=== PATIENT | female | born 1965 | race Caucasian/White ===

== ENCOUNTER 2020-03-17 22:00 | Emergency (ER) | payer OTHER ==
[~2020-03-17] VITALS: Ht 160 cm; Wt 82.7 kg
--- NOTE | 2020-03-17 22:45 | RAD ---
Exam: Right ankle 3 views INDICATION: Ankle pain after fall TECHNIQUE: Frontal, lateral and oblique views of the right ankle Comparisons: None FINDINGS: There is a obliquely oriented fracture of the distal fibula which is minimally displaced. Joint spaces are well-maintained. Mild soft tissue swelling overlying the lateral malleolus. Bone mineralization is normal. IMPRESSION: Obliquely oriented Fracture of the distal fibula which is minimally displaced. Electronically signed by: Reyna Mendez MD (03/17/2020 10:42 PM) [facility]
--- NOTE | 2020-03-17 23:02 | PHYS DOC ---
Past History Additional Past Medical Histor: bilateral ankle fractures (2013) Past Surgical History: , Hysterectomy Smoking: Cigarettes, Less than 1pk/day, Quit Greater Than 1 Year Additional Smoking Information: Smoked 4-5 cigarettes x 30 years, quit 14 years ago Alcohol Use: Occasionally Additional Alcohol Information: 1 glass of wine per day Drug Use: None Social History Lives with . General Adult EDM: Chief Complaint: ANKLE INJURY PAIN HPI: HPI: Patient is a 54 year old female who presents with right ankle pain. This evening, pt was stepping back from her kitchen into the garage onto a lower step and twisted her right foot. She heard a "pop" followed by pain in the right ankle. She was able to bear weight on the leg and took a few steps after with significant pain. She elevated the leg for 1 hour without improvement in pain and then placed it in a walking boot. She can ambulate a little better in the boot but continues to note pain and discomfort with weight bearing. Pain is l ocalized to right lateral leg, 4cm above lateral malleolus. She has not taken any pain medications at home. Denies weakness of right leg, numbness/tingling in toes, or loss of sensation. She previously broke both her ankles back in 2013, but did not require any surgical intervention. Review of Systems: Review of Systems: Constitutional: Denies fever or chills Eyes: Denies redness or eye pain HENT: Denies nasal congestion or sore throat Respiratory: Denies cough or shortness of breath Cardiovascular: Denies chest pain or palpitations GI: Denies abdominal pain, nausea, or vomiting : Denies dysuria or hematuria Musculoskeletal: +Right ankle pain. Denies back pain or other joint pains. Integument: Denies rash or skin lesions Neurologic: Denies headache, focal weakness or sensory changes Complete systems were reviewed and found to be within normal limits, except as documented in this note. Family History: Family History: non-contributory. Allergies: Allergies: Allergies Coded Allergies Type Severity Reaction Last Updated Verified Penicillins Allergy Unknown 03/17/20 Yes Sulfa (Sulfonamide Antibiotics) Allergy Unknown 03/17/20 Yes Physical Exam: PE: Constitutional: Well developed, well nourished, no acute distress, non-toxic appearance HENT: Normocephalic, atraumatic Lungs & Thorax: No respiratory distress, equal chest rise and fall Abdomen: Soft, no tenderness Skin: Warm, dry, no erythema, no rash Back: No tenderness Extremities: point tenderness on right distal fibula, ROM intact, mild edema of right ankle, no knee tenderness Neurologic:Alert and oriented X 3, +5/5 muscle strength in b/l LE, normal sensory function, no focal deficits noted. Psychologic: Affect normal, judgment normal Current Patient Data: Vital Signs: Vital Signs Date Time Temp Pulse Resp B/P (MAP) Pulse Ox O2 Delivery O2 Flow Rate FiO2 03/17/20 22:10 97.9 96 18 149/92 (111) 97 Room Air EKG: EKG: [] Radiology/Procedures: Radiology/Procedures: PROCEDURE: ANKLE RIGHT 3V Exam: Right ankle 3 views INDICATION: Ankle pain after fall TECHNIQUE: Frontal, lateral and oblique views of the right ankle Comparisons: None FINDINGS: There is a obliquely oriented fracture of the distal fibula which is minimally displaced. Joint spaces are well-maintained. Mild soft tissue swelling overlying the lateral malleolus. Bone mineralization is normal. IMPRESSION: Obliquely oriented Fracture of the distal fibula which is minimally displaced. Electronically signed by: Reyna Mendez MD (03/17/2020 10:42 PM) [facility] Course & Med Decision Making: Course & Med Decision Making Pertinent Imaging studies reviewed. (See chart for details) Pt is a 54 year old female who presented to the ED with right ankle pain after twisting her leg. Right ankle and foot neurovascularly intact. Ankle XR revealed obliquely oriented fracture of distal fibula with minimal displacement. Encouraged pt to continue using walking boot with crutches for the next 6-8 weeks. Pain controlled with medication. Pt advised to ice ankle for next few days. Stable for discharge home with follow-up with orthopedics. Patient stable for discharge home with outpatient follow-up with PCP/Orthopedics. Orthopedic referral provided. Discussed findings and plan with patient, who acknowledges understanding and agreement. Behzad Disclaimer: Behzad Disclaimer: This electronic medical record was generated, in whole or in part, using a voice recognition dictation system. Departure Departure: Impression: Primary Impression: Fracture of distal end of fibula Qualified Codes: S82.831A - Other fracture of upper and lower end of right fibula, initial encounter for closed fracture Disposition: 01 DC HOME SELF CARE/HOMELESS Condition: STABLE Referrals: DIPESH FERRARA PAC (PCP) TIFFANY ROD MD Patient Instructions: Crutch Use, [id number], Fibular Fracture, Ankle, Adult, Undisplaced, Treated with Immobilization Additional Instructions: ICE area of pain 20 min on then leave off next 20 mins. Repeat several times daily as needed for next few days as needed. Please continue use of your walking boot for next 6-8 weeks or until cleared by orthopedic surgeon. Scripts Hydrocodone Bit/Acetaminophen (NORCO 5-325 TABLET) 1 Each Tablet 0.5-1 TAB PO Q6HRS PRN for PAIN, #10 TAB Prov: LUCAS NICOLAS DO 03/17/20 LUCAS NICOLAS DO Mar 17, 2020 23:02
[2020-03-17] MEDS ORDERED: HYDR-3165 PO (23:05)
[2020-03-17] MEDS: HYDROcodone/APAP 5/325MG 1 TAB TABLET PO ONE (23:13)
[2020-03-17 23:20] VITALS: BP 151/80
== END 2020-03-17 23:24 | disposition home or self-care (01) ==
LOC: ER 22:00
DX: S82.831A Other fracture of upper and lower end of right fibula, initial encounter for closed fracture (principal); F17.210 Nicotine dependence, cigarettes, uncomplicated; Z88.0 Allergy status to penicillin; Z88.2 Allergy status to sulfonamides; X50.9XXA Other and unspecified overexertion or strenuous movements or postures, initial encounter; Y93.89 Activity, other specified; Y92.89 Other specified places as the place of occurrence of the external cause; Y99.8 Other external cause status
CPT/HCPCS: 73610; 99284

== ENCOUNTER → 2020-11-03 | Outpatient (CLI) | payer OTHER ==
[~2020-11-03] MED LIST: HYDR-3165 PO
--- NOTE | 2020-11-03 12:38 | RAD ---
EXAM: Chest, 2 views. HISTORY: Cough. COMPARISON: None. FINDINGS: 2 views of the chest are obtained. There is no infiltrate, pleural effusion or pneumothorax . There is an incidental mildly tortuous aortic arch. IMPRESSION: No acute pulmonary finding. Electronically signed by: Tiffany Burden MD (11/03/2020 12:36 PM) [id number]
== END ==
LOC: RAD 08:03
PROVIDERS: ATTEND Physician Assistant
DX: R05 Cough (principal); Q25.46 Tortuous aortic arch
CPT/HCPCS: 71046